=== PATIENT | male | born 1980 | race Caucasian/White ===

== ENCOUNTER 2021-07-01 09:26 | Emergency (ER) | payer OTHER ==
[~2021-07-01 09:26] MED LIST: LASIX40 MG PO; POTASSIUM CHLO20 ME1 PO
[2021-07-01 10:02] LABS: BILIRUBIN NEGATIVE (NEGATIVE); BLOOD NEGATIVE Ery/uL (NEGATIVE); CLARITY CLEAR (CLEAR); GLUCOSE (U) NORMAL (NORMAL); LEUKOCYTES NEGATIVE Leu/uL (NEGATIVE); NITRITE NEGATIVE (NEGATIVE); PROTEIN NEGATIVE (NEGATIVE); UROBILINOGEN >=8.0 mg/dL (0.2-1.0); pH 6.5 (5.0-9.0)
[2021-07-01 10:04] LABS: COLOR AMBER (YELLOW)
[2021-07-01 10:37] LABS: BASOPHIL 0.4 % (0-2); EOSINOPHIL 0.6 % (0-5); HCT 48.6 % (42.0-52.0); HGB 16.1 g/dl (13.2-18.0); LYMPHOCYTE 26.6 % (15-48); MCH 29.1 pg (25.0-31.0); MCHC 33.1 g/dL (32.0-36.0); MCV 87.7 fL (78.0-100.0); MONOCYTE 11.2 % (0-12); MPV 9.1 fL (6.0-9.5); NEUTROPHIL 61.1 % (41-80); NRBC 0; PLT 315 K/uL (150-400); RBC 5.54 M/uL (4.70-6.00); RDW 12.6 % (11.5-14.0); WBC 7.3 K/uL (4.0-10.5)
[2021-07-01 11:02] LABS: INR 1.03 (0.9-1.2); PROTHROMBIN TIME 12.9 SECONDS (11.8-13.4)
[2021-07-01 11:03] LABS: ALBUMIN 3.6 g/dL (3.4-5.0); BILIRUBIN - TOTAL 0.6 mg/dL (0.2-1.0); BUN/CREAT RATIO (CALC) 12.6 RATIO; CREATININE 0.87 mg/dL (0.67-1.17); GLOBULIN (CALCULATION) 5.7 g/dL; POTASSIUM 4.2 mmol/L (3.5-5.1); TOTAL PROTEIN 9.3 g/dL (6.4-8.2)
[2021-07-02 21:06] LABS: CHLAMYDIA TRACHOMATIS, NAA Negative (Negative); NEISSERIA GONORRHOEAE, NAA Negative (Negative)
== END 2021-07-01 11:45 | disposition home or self-care (01) ==
LOC: FER 09:26
PROVIDERS: Emergency Medicine
DX: R30.0 Dysuria (principal); R74.01 Elevation of levels of liver transaminase levels; E66.01 Morbid (severe) obesity due to excess calories; F17.210 Nicotine dependence, cigarettes, uncomplicated
CPT/HCPCS: 36415; 80053; 81003; 85025; 85610; 87491; 87591; 99283